=== PATIENT | female | born 1975 ===

== ENCOUNTER 2018-07-20 11:41 | Inpatient (IN) | payer OTHER ==
[~2018-07-20] VITALS: Ht 162.6 cm; Wt 99.8 kg
[~2018-07-20 11:41] MED LIST: MULTI-VITAMIN1 EACH PO; SINGULAIR10 MG PO; SYNTHROID75 MCG PO; VITAMIN D400 UNI2 PO
== END 2018-07-29 15:02 | disposition home or self-care (01) | DRG 743 ==
LOC: SURH 07-27 08:25 → OB/GYN 07-27 09:38 → O/R 07-27 09:38 → OB/GYN 07-27 18:02
PROVIDERS: ADMIT Obstetrics & Gynecology Obstetrics
PROC: 0UT90ZZ Resection of Uterus, Open Approach (ICD-10-PCS; principal; 2018-07-27 10:00)
DX: N80.0 Endometriosis of uterus (principal)

== ENCOUNTER 2018-09-27 20:41 | Emergency (ER) | payer OTHER ==
[~2018-09-27] VITALS: Ht 162.6 cm; Wt 95.3 kg
== END 2018-09-28 00:12 | disposition home or self-care (01) ==
LOC: ER 20:41
DX: N93.8 Other specified abnormal uterine and vaginal bleeding (principal)